=== PATIENT | male | born 1995 | race African-American/Black ===

== ENCOUNTER 2018-05-01 13:16 | Emergency (ER) | payer MEDICAID, SELFPAY ==
--- NOTE | 2018-05-01 14:25 | CT ---
HEAD CT WITHOUT CONTRAST: History: Seizure. Comparison: None. Technique: Noncontrast head CT is performed from skull to skull vertex. FINDINGS: No parenchymal hemorrhage. No extraaxial hematoma. No midline shift. Basilar cisterns are patent. Bra in volume is age appropriate. Cortical linares white matter differentiation is preserved. Ventricles and sulci are patent and symmetric. Calvarium is intact. Adequate aeration of the sinuses and mastoid air cells. IMPRESSION: No acute intracranial process. POS: [facility]
[2018-05-01 14:54] LABS: #Eosinphils 0.1 thou/uL (0.0-0.7); #Neutrophils 6.6 thou/uL (1.40-6.50); %Basophils 0.2 % (0.0-1.0); %Eosinophils 1.5 % (0.0-10.0); %Monocytes 11.8 % (0.0-10.0); %Neutrophils 75.4 % (42.0-75.0); Hemoglobin 14.7 g/dL (14.0-18.0); Mean Corpuscular HGB CONC 32.8 g/dL (32.0-36.0); Mean Corpuscular Hemoglobin 29.6 pg (27.0-31.0); Mean Corpuscular Volume 90.4 fL (78.0-98.0); Mean Platelet Volume 6.4 fL (7.4-10.4); Platelet Count 223 thou/uL (130-400); RBC Distribution Width 11.9 % (11.5-14.5); Red Blood Cell (RBC) Count 4.97 mill/uL (4.70-6.10); White Blood Cell (WBC) Count 8.7 thou/uL (4.8-10.8)
[2018-05-01 15:18] LABS: ALT (SGPT) 19 U/L (8-55); AST (SGOT) 21 U/L (5-34); Acetaminophen Less than 6.0 mcg/mL (10.0-30.0); Albumin 3.9 g/dL (3.5-5.0); Alcohol Less than 10 mg/dL (Less than 10); Alkaline Phosphatase 57 U/L (40-150); Anion Gap 8 mmol/L (10-20); BUN (Urea Nitrogen) 10 mg/dL (8.9-20.6); Bilirubin, Total 0.4 mg/dL (0.2-1.2); CK (CPK) 123 U/L (30-200); Calc. Creatinine Clearance 0 mL/min (70-130); Calcium 8.9 mg/dL (7.8-10.44); Carbon Dioxide 30 mmol/L (22-29); Chloride 106 mmol/L (98-107); Estimated GFR-MDRD Greater than 90; Globulin 2.5 g/dL (2.4-3.5); Glucose 74 mg/dL (70-105); Lipase 30 U/L (8-78); Potassium 4.2 mmol/L (3.5-5.1); Protein, Total 6.4 g/dL (6.0-8.3); Salicylate Less than 8.0 mg/dL (15.0-30.0); Sodium 140 mmol/L (136-145)
[2018-05-01 15:50] LABS: Bilirubin Negative (Negative); Blood, Urine Negative (Negative); Clarity CLEAR (Clear); Glucose, Urine (Dipstick) Negative (Negative); Leukocyte Negative (Negative); Nitrite Negative (Negative); Protein, Urine (Dipstick) Negative (Neg-Trace); Specific Gravity, Urine 1.015 (1.002-1.036); Urobilinogen 0.2 mg/dL (0.2-1.0)
[2018-05-01 15:58] LABS: Medtox Reader # READER 4
[2018-05-01 15:59] LABS: Amphetamine Not Detected (NotDetected); Barbiturates Screen Not Detected (NotDetected); Benzodiazepine Screen Not Detected (NotDetected); Cocaine Metabolite Screen Not Detected (NotDetected); Medtox Control Line Valid? VALID (VALID); Methadone Not Detected (NotDetected); Methamphetamine Not Detected (NotDetected); Opiate Screen Not Detected (NotDetected); Oxycodone Screen Detected (NotDetected); Phencyclidine (PCP) Not Detected (NotDetected); THC/Cannabinoid Screen Detected (NotDetected); Tricyclic Screen Not Detected (NotDetected)
--- NOTE | 2018-05-04 14:33 | EKG ---
Test Reason : ER Blood Pressure : / mmHG Vent. Rate : 098 BPM Atrial Rate : 098 BPM P-R Int : 144 ms QRS Dur : 084 ms QT Int : 340 ms P-R-T Axes : 072 065 019 degrees QTc Int : 434 ms Normal sinus rhythm Normal ECG Confirmed by BRENDA FLANAGAN ([id number]), publishing editor BAMBI ECHOLS ([id number]) on 05/04/2018 2:32:34 PM Referred By: Confirmed By:BRENDA FLANAGAN
== END 2018-05-01 17:27 | disposition home or self-care (01) ==
LOC: ERS 13:16
DX: F12.929 Cannabis use, unspecified with intoxication, unspecified (principal); Z71.6 Tobacco abuse counseling; F17.210 Nicotine dependence, cigarettes, uncomplicated
CPT/HCPCS: 36415; 70450; 80053; 80306; 80307; 81003; 82550; 83690; 85025; 93005; 94760; 96360; 99406

== ENCOUNTER 2025-08-11 23:18 | Emergency (ER) | payer SELFPAY ==
[2025-08-12] MEDS ORDERED: Methocarbamol 500 MG TAB ONE (01:51)
[2025-08-12] MEDS ORDERED: Ketorolac Tromethamine 30 MG (1 mL) VIAL ONE (01:51)
[2025-08-12] MEDS ORDERED: Dexamethasone 10 MG/ML VIAL ONE (01:51)
== END 2025-08-12 02:00 | disposition home or self-care (01) ==
LOC: ERS 23:18
DX: M54.50 Low back pain, unspecified (principal); M79.605 Pain in left leg
CPT/HCPCS: 96372; 99283; J1100; J1885